=== PATIENT | female | born 1980 | race Caucasian/White ===

== ENCOUNTER 2017-09-29 10:20 | Emergency (ER) | payer OTHER ==
[~2017-09-29] VITALS: Ht 157.5 cm; Wt 59.0 kg
[~2017-09-29 10:20] MED LIST: MOTRIN 800MG T800 MG PO; PERCOCET 325 MG1 TA2 PO; PRENATAL1 TA2 PO; SINGULAIR10 M1 PO
--- NOTE | 2017-09-29 11:57 | ED GENERAL ADULT ---
History of Present Illness General Chief Complaint: Nausea, Vomiting, Diarrhea Stated Complaint: NVD X 1DAY, leg pain Source: patient, family Exam Limitations: no limitations Allergies Coded Allergies: petrolatum,white (Intermediate, UNKNOWN 09/29/17) bacitracin (Mild, HIVES 09/29/17) pineapple (UNKNOWN 09/29/17) strawberry (UNKNOWN 09/29/17) tomato (INTOLERANT TO UNCOOKED TOMATOES 09/29/17) lactose (INTOLERANT 09/29/17) Uncoded Allergies: eggplant (Severe, LARYNGEAL EDEMA 06/15/13) MUSHROOMS (UNKNOWN 06/15/13) Triage Note: PT TO ER W/ SPOUSE C/C N/V/D X 8 HRS, ALSO C/O SEVERE CRAMPING TO BILATERAL LEGS AND HANDS Triage Nurses Notes Reviewed? yes Onset: Evening Duration: hour(s): : No Patient currently breastfeeds: No HPI: Mrs Fox is a 36-year-old lady with a PMH of allergies, recent diagnosis of skin rash awaiting biopsy results, started on prednisone, triamcinolone ointment and cetirizine who presents today with complaints of sudden onset nausea, vomiting, diarrhea and leg pain. Symptoms started this morning at 2 AM with nausea that woke her up from sleep, multiple episodes of nonbloody emesis and watery diarrhea since then. Around 8 AM she started experiencing bilateral lower extremity pain which she described as a cramping/burning/tingling sensation mainly in her thighs, limitations in their ability to flex or extend her legs. She denies any headache, dizziness, blurred vision, weakness in her arms, urine/bladder incontinence/retention. No recent travel, however, she thinks that her daughter may have recently come down with a viral gastroenteritis. (Pinky ESTRELLA,[place]) Vital Signs & Intake/Output Vital Signs & Intake/Output Vital Signs Date Time Temp Pulse Resp B/P B/P Pulse O2 O2 Flow FiO2 Mean Ox Delivery Rate 09/29 1213 101.3 09/29 1146 100 09/29 1145 101.3 75 24 108/64 100 Room Air 09/29 1049 98.8 30 Reconcile Medications Montelukast Sodium (Singulair) 10 MG TABLET 1 TAB PO DAILY ALLERGIES ( Reported) Ondansetron (Zofran Odt) 4 MG TAB.RAPDIS 1 TAB SL BID PRN Nausea Prednisone 10 MG TABLET 2 TAB PO DAILY STEROID (Reported) Prednisone 20 MG TABLET 1 TAB PO QPM STEROID (Reported) Triamcinolone Acetonide 0.1 % OINT...G. 1 RICKEY TOP BID SKIN (Reported) apply to affected area(s) (Kaden ESTRELLA,[place]) Past History Travel History Traveled to [place] past 21 day No Medical History Any Pertinent Medical History? see below for history Respiratory: allergies Surgical History Surgical History: none Psychosocial History What is your primary language [place] Tobacco Use: Never used Family History Hx Contributory? No (Jace Vance MD) Review of Systems Review of Systems Constitutional: Reports: see HPI. EENTM: Reports: no symptoms. Respiratory: Reports: no symptoms. Cardiovascular: Reports: no symptoms. GI: Reports: see HPI. Genitourinary: Reports: no symptoms. Musculoskeletal: Reports: see HPI. Skin: Reports: see HPI. Neurological/Psychological: Reports: see HPI. (Jace Vance MD) Physical Exam Physical Exam General Appearance: alert, moderate distress Head: Mild erythema noted on the cheeks Eyes: Bilateral: PERRL. Ears, Nose, Throat: moist mucus membranes Respiratory: normal breath sounds, no respiratory distress Cardiovascular: regular rate/rhythm Gastrointestinal: normal bowel sounds, soft, MILD TENDERNESS ELICITED ON PALPATION Extremities: normal inspection, normal range of motion Neurologic/Psych: no motor/sensory deficits Core Measures ACS in differential dx? No CVA/TIA Diagnosis: No Sepsis Present: No Sepsis Focused Exam Completed? No (Jace Vance MD) Progress Differential Diagnoses I considered the following diagnoses in my evaluation of the patient: [Viral gastroenteritis] Plan of Care: Orders Procedure Date/time Status Add-on Test (ER Only) 09/29 1153 Active URINE DRUGS OF ABUSE 09/29 1142 Complete URINE 09/29 1128 Complete URINALYSIS 09/29 1128 Complete MAGNESIUM 09/29 1127 Complete LIPASE 09/29 1127 Complete COMPREHENSIVE METABOLIC PANEL 09/29 1127 Complete CREATINE PHOSPHOKINASE 09/29 1127 Complete CBC WITHOUT DIFFERENTIAL 09/29 1127 Complete AMYLASE 09/29 1127 Complete Laboratory Tests 09/29/17 1322: Urine Opiates Screen < 100.00, Methadone Screen < 40, Barbiturate Screen < 60, Ur Phencyclidine Scrn < 6.00, Amphetamines Screen < 100, U Benzodiazepines Scrn < 85, Urine Cocaine Screen < 50, Urine Cannabis Screen < 5.00, Urine Color YEL, Urine Clarity CLEAR, Urine pH 8.0, Ur Specific Melvin 1.010, Urine Protein NEG, Urine Ketones TRACE H, Urine Nitrite NEG, Urine Bilirubin NEG, Urine Urobilinogen 0.2, Ur Leukocyte Esterase NEG, Ur Microscopic EXAM NOT REQUIRED, Urine Hemoglobin NEG, Urine Glucose NEG, Urine Test NEGATIVE 09/29/17 1200: Anion Gap 19 H, Estimated GFR > 60, BUN/Creatinine Ratio 25.0, Glucose 95, Calcium 10.1, Magnesium 1.8, Total Bilirubin 1.3, AST 29, ALT 29, Alkaline Phosphatase 64, Creatine Kinase 28 L, Total Protein 7.9, Albumin 5.3 H, Globulin 2.6, Albumin/Globulin Ratio 2.0, Amylase 105, Lipase 136, CBC w Diff NO MAN DIFF REQ, RBC 5.04, MCV 91.4, MCH 31.5 H, RDW 13.2, MPV 8.4, Gran % 92.0 H , Lymphocytes % 4.5 L, Monocytes % 3.5, Eosinophils % 0, Basophils % 0, Absolute Granulocytes 13.8 H, Absolute Lymphocytes 0.7 L, Absolute Monocytes 0.5, Absolute Eosinophils 0, Absolute Basophils 0, PUBS MCHC 34.5 Initial ED EKG: none (Pinky ESTRELLA,[place]) Departure Departure Time of Disposition: 5 Disposition: HOME OR SELF CARE Condition: Stable Clinical Impression Primary Impression: Viral gastroenteritis Referrals: Librado CULLEN,Alfredo Balbuena (PCP/Family) Additional Instructions: He was seen in the emergency room today for gastroenteritis. Please take all medications as directed. Maintain clear liquids for the next 24 hours and advance your diet as tolerated. Please follow-up on the skin biopsy with your provider at the next scheduled appointment. Please follow-up with your PCP after discharge to go over the results from today 's visit. There may be nonspecific findings from ER visit that may require further workup and monitoring by your PCP. If you had a laceration associated with this visit there is a chance that a foreign body may have been retained. Please follow-up with your physician in 3- 5 days for a wound check. If you had an x-ray done there is a chance that a fracture could have been missed on the initial reading and you should follow-up with your PCP for repeat imaging if symptoms persist/worsen. In the event that your blood pressure was elevated in the emergency room, please have it rechecked by your PCP within the next 48 hours. If narcotics/controlled substance was prescribed for you in the ED, avoid driving/operating heavy machinery while on these medications. These medications can cause constipation for which you may require stool softeners. Thank you for choosing [facility] emergency room. Please return to the emergency room immediately if you have any concerns of worsening symptoms. Departure Forms: Customer Survey General Discharge Information Prescriptions: Current Visit Scripts Ondansetron (Zofran Odt) 1 TAB SL BID PRN Nausea #10 TAB (Jace Vance MD) PA/BELLMAN Co-Sign Statement Statement: ED Attending supervision documentation- [] I saw and evaluated the patient. I have also reviewed all the pertinent lab results and diagnostic results. I agree with the findings and the plan of care as documented in the PA's/BELLMAN's documentation. [] I have reviewed the ED Record and agree with the PA's/BELLMAN's documentation. [] Additions or exceptions (if any) to the PAs/BELLMAN's note and plan are summarized below: [] Resident Co-Sign Statement Statement: ED Attending supervision documentation- [X] I saw and evaluated the patient. I have also reviewed all the pertinent lab results and diagnostic results. I agree with the findings and the plan of care as documented in the Resident's documentation. [X] I have reviewed the ED Record and agree with the Resident's documentation. [] Additions or exceptions (if any) to the Resident's note and plan are summarized below: [] (Kaden ESTRELLA,[place]) Critical Care Note Critical Care Note Critical Care Time: non-applicable (Jace Vance MD)
[2017-09-29] MEDS ORDERED: PREDNISONE10 M2 PO (11:58)
[2017-09-29] MEDS ORDERED: PREDNISONE20 M1 PO (11:59)
[2017-09-29] MEDS ORDERED: TRIAMCINOLONE A15 G3 TOP (12:00)
[2017-09-29 12:15] LABS: ABSOLUTE BASOPHIL COUNT 0 /CUMM (0.0-0.2); ABSOLUTE EOSINOPHIL COUNT 0 /CUMM (0.0-0.7); ABSOLUTE GRANULOCYTE CT 13.8 /CUMM (1.4-6.5); ABSOLUTE LYMPH COUNT 0.7 /CUMM (1.2-3.4); ABSOLUTE MONOCYTE COUNT 0.5 /CUMM (0.10-0.60); BASOPHIL % 0 % (0.0-2.0); EOSINOPHIL % 0 % (0-5); MEAN CORPUSCULAR HGB 31.5 PG (27.0-31.0); MEAN CORPUSCULAR HGB CONC 34.5 G/DL (33.0-37.0); MEAN CORPUSCULAR VOLUME 91.4 FL (81.0-99.0); MEAN PLATELET VOLUME 8.4 FL (7.4-10.4); PLATELET COUNT 264 /CUMM (130-400); RBC DISTRIBUTION WIDTH 13.2 % (11.5-14.5); RED BLOOD CELL CT 5.04 /CUMM (4.20-5.40)
[2017-09-29] MEDS ORDERED: ZOFRAN ODT4 M1 SL (14:16)
[2017-09-29 14:30] VITALS: BP 110/70
== END 2017-09-29 14:32 ==
LOC: ERH 10:20
PROVIDERS: Emergency Medicine
DX: A08.4 Viral intestinal infection, unspecified (principal)
CPT/HCPCS: 80307; 81003; 81025; 96361; 96374; 96375; J0131; J2405